=== PATIENT | male | born 1980 | race Caucasian/White ===

== ENCOUNTER 2020-10-19 10:02 | Inpatient (IN) | payer MEDICAID ==
[~2020-10-19] VITALS: Ht 188 cm; Wt 111.8 kg
[2020-10-19] MEDS ORDERED: BUPR100SR PO (11:19)
[2020-10-19] MEDS ORDERED: ARIP10TA8 PO (11:19)
[2020-10-19 11:32] LABS: AMPHET/METH SCREEN,URINE NEGATIVE (NEGATIVE); BARBITURATE SCREEN, URINE NEGATIVE (NEGATIVE); BENZODIAZEPINES SCREEN,URINE NEGATIVE (NEGATIVE); CANNABINOID SCREEN,URINE POSITIVE (NEGATIVE); COCAINE SCREEN,URINE NEGATIVE (NEGATIVE); METHADONE SCREEN, URINE NEGATIVE (NEGATIVE); OPIATE SCREEN,URINE NEGATIVE (NEGATIVE)
[2020-10-19 11:33] LABS: PHENCYCLIDINE SCREEN,URINE NEGATIVE (NEGATIVE)
[2020-10-19 11:36] LABS: BASOPHILS % (AUTO) 0.6 % (0.0-2.0); EOSINOPHILS % (AUTO) 2.5 % (1.0-6.0); HEMATOCRIT 37.7 % (41-53); HEMOGLOBIN 12.5 g/dL (13.5-17.5); LYMPHOCYTES # (AUTO) 1.5 K/uL (1.0-4.8); LYMPHOCYTES % (AUTO) 30.8 % (22.0-44.0); MEAN CORPUSCULAR HGB CONC 33.1 G/dL (31.0-37.0); MEAN CORPUSCULAR VOLUME 94 fL (80-100); MONOCYTES # (AUTO) 0.5 K/uL (0.1-1.0); MONOCYTES % (AUTO) 10.7 % (2.0-9.0); NEUTROPHILS # (AUTO) 2.7 K/uL (1.8-7.7); NEUTROPHILS % (AUTO) 55.4 % (40.0-70.0); PLATELET COUNT (AUTO) 164 K/uL (150-450); RED BLOOD CELL COUNT(AUTO) 4.03 MIL/uL (4.50-5.90)
[2020-10-19 11:49] LABS: ANION GAP 5 mmol/L (8-16); CARBON DIOXIDE 31 mmol/L (22-29); CHLORIDE 103 mmol/L (98-107); GLOMERULAR FILTR. RATE CALC > 60 mL/min (>60); GLUCOSE,RANDOM 106 mg/dL (70-110); POTASSIUM 4.2 mmol/L (3.5-5.1); SODIUM SERUM 139 mmol/L (136-145); UREA NITROGEN, BLOOD 14 mg/dL (7-18)
[2020-10-19 12:04] LABS: ALANINE AMINOTRANSFERASE 78 U/L (12-78); ALBUMIN 3.1 g/dL (3.4-5.0); ALKALINE PHOSPHATASE 92 U/L (46-116); ASPARTATE AMINOTRANSFERASE 49 U/L (15-37); BILIRUBIN,TOTAL 0.3 mg/dL (0.1-1.0); TOTAL PROTEIN, SERUM 6.5 g/dL (6.4-8.2)
[2020-10-19] MEDS ORDERED: PERMETHRIN 5% 60 GM CREAM TP ONE (12:15)
[2020-10-19 13:08] LABS: COVID AG,FIA SOURCE NASOPHARYNGEAL
[2020-10-19] MEDS ORDERED: CloNIDine HCL 0.1 MG TABLET PO PRN (17:00)
[2020-10-19] MEDS ORDERED: DOCUSATE SODIUM 100 MG CAPSULE PO PRN (17:00)
[2020-10-19] MEDS ORDERED: LOPERAMIDE HCL 2 MG CAPSULE PO PRN (17:00)
[2020-10-19] MEDS ORDERED: PETROLATUM,WHITE 28 GM JELLY TP PRN (17:00)
[2020-10-19] MEDS ORDERED: GuaiFENesin/D-METHORPHAN [SUGAR-FREE] 200-20MG/10 ML SYRUP UDCUP PO PRN (17:00)
[2020-10-19] MEDS ORDERED: ALBUTEROL SULFATE HFA 90 MCG/PUFF 8 GM INHALER IH PRN (17:00)
[2020-10-19] MEDS ORDERED: MAG HYDROX/AL HYDROX/SIMETH ES 30 ML SUSPENSION UDCUP PO PRN (17:00)
[2020-10-19] MEDS ORDERED: IBUPROFEN 400 MG TABLET PO PRN (17:00)
[2020-10-19] MEDS ORDERED: NICOTINE 14 MG/24 HOUR PATCH TD PRN (17:00)
[2020-10-19] MEDS ORDERED: ONDANSETRON HCL 4 MG TABLET PO PRN (17:00)
[2020-10-19 18:00] VITALS: BP 137/64
[2020-10-20 06:29] VITALS: BP 122/65
[2020-10-20 08:11] VITALS: BP 100/68
[2020-10-20 08:11] LABS: CHOL/HDL RATIO 2.5 (4.2-7.3)
[2020-10-20] MEDS: LORazepam 2 MG TABLET PO PRN ×2 (09:23→15:46)
[2020-10-20] MEDS: BuPROPion HCL 100 MG SR TABLET PO SCH ×2 (10:52→16:55)
[2020-10-20] MEDS: NICOTINE POLACRILEX 2 MG LOZENGE PO PRN ×3 (15:47→22:30)
[2020-10-20] MEDS: ACETAMINOPHEN 325 MG TABLET PO PRN (15:47)
[2020-10-20 16:05] VITALS: BP 130/83
[2020-10-20] MEDS: FERROUS SULFATE 325 MG EC TABLET PO SCH (17:30)
[2020-10-20] MEDS: ZOLPIDEM TARTRATE 10 MG TABLET PO PRN (22:26)
[2020-10-21 05:33] VITALS: BP 123/91
[2020-10-21] MEDS: FERROUS SULFATE 325 MG EC TABLET PO SCH ×3 (06:37→16:32)
[2020-10-21] MEDS ORDERED: FERROUS SULFATE 325 MG EC TABLET PO SCH (07:00)
[2020-10-21 07:21] LABS: HEMOGLOBIN A1C 5.1 % (3.8-5.6)
[2020-10-21 07:31] LABS: CHOL/HDL RATIO 2.4 (4.2-7.3)
[2020-10-21 08:16] VITALS: BP 133/72
[2020-10-21] MEDS: ARIPiprazole 10 MG TABLET PO SCH (08:20)
[2020-10-21] MEDS: ASCORBIC ACID 500 MG TABLET PO SCH (08:20)
[2020-10-21] MEDS: BuPROPion HCL 100 MG SR TABLET PO SCH ×2 (08:20→16:32)
[2020-10-21] MEDS: MULTIVITAMINS WITH MINERALS, THERAPEUTIC TABLET PO SCH (08:21)
[2020-10-21] MEDS: NICOTINE POLACRILEX 2 MG LOZENGE PO PRN ×2 (08:33→16:34)
[2020-10-21] MEDS ORDERED: BuPROPion HCL 100 MG SR TABLET PO ONE (09:45)
[2020-10-21] MEDS: LORazepam 2 MG TABLET PO PRN ×2 (12:42→23:55)
[2020-10-21] MEDS: HALOPERIDOL 5 MG TABLET PO PRN (12:51)
[2020-10-21] MEDS: BACITRACIN 28 GM OINTMENT TP SCH ×2 (12:51→17:00)
[2020-10-21 16:13] VITALS: BP 111/60
[2020-10-21 17:03] VITALS: BP 139/96
[2020-10-21] MEDS: SELENIUM SULFIDE 1% 207 ML SHAMPOO TP PRN (17:18)
[2020-10-21] MEDS: ZINC OXIDE 16% PASTE 57 GM TUBE TP SCH (17:18)
[2020-10-21] MEDS: ZOLPIDEM TARTRATE 10 MG TABLET PO PRN (23:55)
[2020-10-22 00:21] VITALS: BP 130/87
[2020-10-22] MEDS: FERROUS SULFATE 325 MG EC TABLET PO SCH ×3 (06:11→15:48)
[2020-10-22] MEDS: LORazepam 2 MG TABLET PO PRN ×2 (06:11→14:38)
[2020-10-22] MEDS: NICOTINE POLACRILEX 2 MG LOZENGE PO PRN ×3 (06:12→16:53)
[2020-10-22 08:04] VITALS: BP 121/62
[2020-10-22] MEDS: ARIPiprazole 10 MG TABLET PO SCH (08:11)
[2020-10-22] MEDS: ASCORBIC ACID 500 MG TABLET PO SCH (08:11)
[2020-10-22] MEDS: MULTIVITAMINS WITH MINERALS, THERAPEUTIC TABLET PO SCH (08:11)
[2020-10-22] MEDS: BuPROPion HCL 100 MG SR TABLET PO SCH ×2 (08:12→15:48)
[2020-10-22] MEDS: ZINC OXIDE 16% PASTE 57 GM TUBE TP SCH ×2 (08:15→20:35)
[2020-10-22] MEDS ORDERED: ARIPiprazole 5 MG TABLET PO ONE (09:15)
[2020-10-22] MEDS: BACITRACIN 28 GM OINTMENT TP SCH ×2 (09:24→20:35)
[2020-10-22 09:54] VITALS: BP 107/68
[2020-10-22] MEDS: ACETAMINOPHEN 325 MG TABLET PO PRN (09:54)
[2020-10-22] MEDS: SELENIUM SULFIDE 1% 207 ML SHAMPOO TP PRN (14:22)
[2020-10-22] MEDS: HALOPERIDOL 5 MG TABLET PO PRN (14:47)
[2020-10-22 16:10] VITALS: BP 135/80
[2020-10-22] MEDS: ZOLPIDEM TARTRATE 10 MG TABLET PO PRN (20:36)
[2020-10-23 02:10] VITALS: BP 122/74
[2020-10-23] MEDS: HALOPERIDOL 5 MG TABLET PO PRN ×2 (02:15→15:50)
[2020-10-23] MEDS: LORazepam 2 MG TABLET PO PRN ×2 (02:15→15:50)
[2020-10-23] MEDS: NICOTINE POLACRILEX 2 MG LOZENGE PO PRN ×4 (02:25→16:50)
[2020-10-23] MEDS: FERROUS SULFATE 325 MG EC TABLET PO SCH ×3 (06:17→16:15)
[2020-10-23] MEDS: SELENIUM SULFIDE 1% 207 ML SHAMPOO TP PRN (06:34)
[2020-10-23 08:19] VITALS: BP 127/80
[2020-10-23] MEDS: MULTIVITAMINS WITH MINERALS, THERAPEUTIC TABLET PO SCH (08:40)
[2020-10-23] MEDS: BuPROPion HCL 100 MG SR TABLET PO SCH ×2 (08:40→16:15)
[2020-10-23] MEDS: ARIPiprazole 15 MG TABLET PO SCH (08:40)
[2020-10-23] MEDS: ASCORBIC ACID 500 MG TABLET PO SCH (08:41)
[2020-10-23] MEDS: BACITRACIN 28 GM OINTMENT TP SCH ×2 (08:41→16:35)
[2020-10-23] MEDS: ZINC OXIDE 16% PASTE 57 GM TUBE TP SCH ×2 (08:42→20:53)
[2020-10-23] MEDS: VITAMIN E 200 UNIT PO SCH (08:57)
[2020-10-23] MEDS: ACETAMINOPHEN 325 MG TABLET PO PRN (12:47)
[2020-10-23 16:19] VITALS: BP 128/80
[2020-10-24 03:05] VITALS: BP 140/82
[2020-10-24] MEDS: LORazepam 2 MG TABLET PO PRN (05:48)
[2020-10-24] MEDS: HALOPERIDOL 5 MG TABLET PO PRN (05:48)
[2020-10-24] MEDS: FERROUS SULFATE 325 MG EC TABLET PO SCH ×3 (06:57→16:55)
[2020-10-24] MEDS: ARIPiprazole 15 MG TABLET PO SCH (08:01)
[2020-10-24] MEDS: BuPROPion HCL 100 MG SR TABLET PO SCH ×2 (08:01→12:28)
[2020-10-24] MEDS: ASCORBIC ACID 500 MG TABLET PO SCH (08:01)
[2020-10-24] MEDS: VITAMIN E 200 UNIT PO SCH (08:01)
[2020-10-24] MEDS: MULTIVITAMINS WITH MINERALS, THERAPEUTIC TABLET PO SCH (08:01)
[2020-10-24] MEDS: ZINC OXIDE 16% PASTE 57 GM TUBE TP SCH ×2 (08:13→20:25)
[2020-10-24 08:14] VITALS: BP 129/79
[2020-10-24] MEDS: BACITRACIN 28 GM OINTMENT TP SCH ×2 (09:00→16:56)
[2020-10-24] MEDS: NICOTINE POLACRILEX 2 MG LOZENGE PO PRN ×2 (09:07→13:11)
[2020-10-24] MEDS: QUEtiapine FUMARATE 100 MG TABLET PO SCH ×2 (12:28→20:25)
[2020-10-24] MEDS ORDERED: QUEtiapine FUMARATE 100 MG TABLET PO SCH (21:00)
[2020-10-25] MEDS: SELENIUM SULFIDE 1% 207 ML SHAMPOO TP PRN ×2 (06:30→16:27)
[2020-10-25] MEDS: ACETAMINOPHEN 325 MG TABLET PO PRN (06:46)
[2020-10-25] MEDS: FERROUS SULFATE 325 MG EC TABLET PO SCH ×3 (06:46→16:26)
[2020-10-25] MEDS: NICOTINE POLACRILEX 2 MG LOZENGE PO PRN ×4 (06:53→20:43)
[2020-10-25 08:08] VITALS: BP 139/77
[2020-10-25] MEDS: BuPROPion HCL 100 MG SR TABLET PO SCH ×2 (08:37→12:26)
[2020-10-25] MEDS: VITAMIN E 200 UNIT PO SCH (08:37)
[2020-10-25] MEDS: ASCORBIC ACID 500 MG TABLET PO SCH (08:38)
[2020-10-25] MEDS: MULTIVITAMINS WITH MINERALS, THERAPEUTIC TABLET PO SCH (08:38)
[2020-10-25] MEDS: QUEtiapine FUMARATE 100 MG TABLET PO SCH ×2 (08:38→20:30)
[2020-10-25] MEDS: ZINC OXIDE 16% PASTE 57 GM TUBE TP SCH ×2 (08:38→20:30)
[2020-10-25] MEDS: BACITRACIN 28 GM OINTMENT TP SCH ×2 (08:39→16:26)
[2020-10-25 16:24] VITALS: BP 137/73
[2020-10-25] MEDS: LORazepam 2 MG TABLET PO PRN (16:26)
[2020-10-25] MEDS: ZOLPIDEM TARTRATE 10 MG TABLET PO PRN (20:43)
[2020-10-26 03:47] VITALS: BP 132/90
[2020-10-26] MEDS: NICOTINE POLACRILEX 2 MG LOZENGE PO PRN (04:42)
[2020-10-26] MEDS: FERROUS SULFATE 325 MG EC TABLET PO SCH ×3 (06:29→16:29)
[2020-10-26] MEDS: LORazepam 2 MG TABLET PO PRN ×3 (06:42→16:29)
[2020-10-26] MEDS: BuPROPion HCL 100 MG SR TABLET PO SCH ×2 (08:10→12:03)
[2020-10-26] MEDS: QUEtiapine FUMARATE 100 MG TABLET PO SCH ×2 (08:10→20:56)
[2020-10-26] MEDS: MULTIVITAMINS WITH MINERALS, THERAPEUTIC TABLET PO SCH (08:10)
[2020-10-26] MEDS: VITAMIN E 200 UNIT PO SCH (08:11)
[2020-10-26] MEDS: ASCORBIC ACID 500 MG TABLET PO SCH (08:11)
[2020-10-26] MEDS: ZINC OXIDE 16% PASTE 57 GM TUBE TP SCH ×2 (08:13→20:56)
[2020-10-26] MEDS: BACITRACIN 28 GM OINTMENT TP SCH ×2 (08:13→17:16)
[2020-10-26 08:23] VITALS: BP 110/61
[2020-10-26 14:52] LABS: COVID AG,FIA SOURCE NASAL SWAB
[2020-10-26 16:19] VITALS: BP 136/82
[2020-10-27 01:30] VITALS: BP 132/88
[2020-10-27] MEDS: NICOTINE POLACRILEX 2 MG LOZENGE PO PRN (04:45)
[2020-10-27] MEDS: SELENIUM SULFIDE 1% 207 ML SHAMPOO TP PRN ×2 (04:46→10:26)
[2020-10-27] MEDS: FERROUS SULFATE 325 MG EC TABLET PO SCH ×3 (06:21→16:12)
[2020-10-27] MEDS: ZINC OXIDE 16% PASTE 57 GM TUBE TP SCH ×2 (07:04→20:27)
[2020-10-27 08:05] VITALS: BP 128/68
[2020-10-27] MEDS: MULTIVITAMINS WITH MINERALS, THERAPEUTIC TABLET PO SCH (08:30)
[2020-10-27] MEDS: BuPROPion HCL 100 MG SR TABLET PO SCH ×2 (08:31→13:00)
[2020-10-27] MEDS: ASCORBIC ACID 500 MG TABLET PO SCH (08:32)
[2020-10-27] MEDS: VITAMIN E 200 UNIT PO SCH (08:32)
[2020-10-27] MEDS: QUEtiapine FUMARATE 100 MG TABLET PO SCH ×2 (08:35→09:48)
[2020-10-27] MEDS: BACITRACIN 28 GM OINTMENT TP SCH ×2 (08:35→16:12)
[2020-10-27] MEDS: LORazepam 2 MG TABLET PO PRN ×2 (13:50→14:52)
[2020-10-27] MEDS ORDERED: BuPROPion HCL 100 MG SR TABLET PO ONE (16:00)
[2020-10-27 16:05] VITALS: BP 142/81
[2020-10-27] MEDS: MAGNESIUM HYDROXIDE SUSPENSION 30 ML UDCUP PO PRN (17:07)
[2020-10-27] MEDS: HALOPERIDOL 5 MG TABLET PO PRN (17:07)
[2020-10-28] MEDS: ZOLPIDEM TARTRATE 10 MG TABLET PO PRN ×2 (01:24→20:52)
[2020-10-28 04:41] VITALS: BP 129/80
[2020-10-28] MEDS: SELENIUM SULFIDE 1% 207 ML SHAMPOO TP PRN (04:43)
[2020-10-28] MEDS: FERROUS SULFATE 325 MG EC TABLET PO SCH ×3 (06:15→16:18)
[2020-10-28] MEDS: NICOTINE POLACRILEX 2 MG LOZENGE PO PRN (06:15)
[2020-10-28] MEDS: LORazepam 2 MG TABLET PO PRN (06:29)
[2020-10-28 08:03] VITALS: BP 123/77
[2020-10-28] MEDS: ASCORBIC ACID 500 MG TABLET PO SCH (08:39)
[2020-10-28] MEDS: QUEtiapine FUMARATE 100 MG TABLET PO SCH ×2 (08:40→20:52)
[2020-10-28] MEDS: BuPROPion HCL 100 MG SR TABLET PO SCH ×2 (08:40→12:55)
[2020-10-28] MEDS: VITAMIN E 200 UNIT PO SCH (08:40)
[2020-10-28] MEDS: MULTIVITAMINS WITH MINERALS, THERAPEUTIC TABLET PO SCH (08:40)
[2020-10-28] MEDS: BACITRACIN 28 GM OINTMENT TP SCH ×2 (09:31→16:18)
[2020-10-28] MEDS: ZINC OXIDE 16% PASTE 57 GM TUBE TP SCH ×2 (09:32→20:52)
[2020-10-28] MEDS: MAGNESIUM HYDROXIDE SUSPENSION 30 ML UDCUP PO PRN (16:17)
[2020-10-28 17:22] VITALS: BP 122/72
[2020-10-29 01:35] VITALS: BP 124/68
[2020-10-29] MEDS ORDERED: BUPR100SR PO ×2 (04:30)
[2020-10-29] MEDS ORDERED: QUET100T PO (04:32)
[2020-10-29] MEDS: NICOTINE POLACRILEX 2 MG LOZENGE PO PRN (04:40)
[2020-10-29] MEDS: MAGNESIUM HYDROXIDE SUSPENSION 30 ML UDCUP PO PRN (05:30)
[2020-10-29] MEDS: FERROUS SULFATE 325 MG EC TABLET PO SCH (05:33)
[2020-10-29 08:04] VITALS: BP 128/79
[2020-10-29] MEDS: MULTIVITAMINS WITH MINERALS, THERAPEUTIC TABLET PO SCH (08:16)
[2020-10-29] MEDS: QUEtiapine FUMARATE 100 MG TABLET PO SCH (08:16)
[2020-10-29] MEDS: BuPROPion HCL 100 MG SR TABLET PO SCH (08:16)
[2020-10-29] MEDS: VITAMIN E 200 UNIT PO SCH (08:18)
[2020-10-29] MEDS: ASCORBIC ACID 500 MG TABLET PO SCH (08:18)
[2020-10-29] MEDS: BACITRACIN 28 GM OINTMENT TP SCH (08:20)
[2020-10-29] MEDS: ZINC OXIDE 16% PASTE 57 GM TUBE TP SCH (08:20)
== END 2020-10-29 10:30 | disposition home or self-care (01) | DRG 753 ==
LOC: EMS 10:04 → B2S 13:13 → B3A 10-21 12:20
DX: F31.4 Bipolar disorder, current episode depressed, severe, without psychotic features (principal); R45.851 Suicidal ideations; Z81.8 Family history of other mental and behavioral disorders; Z59.0 Homelessness; F12.10 Cannabis abuse, uncomplicated; E83.51 Hypocalcemia; F15.10 Other stimulant abuse, uncomplicated; D64.9 Anemia, unspecified; S51.811A Laceration without foreign body of right forearm, initial encounter; X83.8XXA Intentional self-harm by other specified means, initial encounter; Y93.89 Activity, other specified; Y92.89 Other specified places as the place of occurrence of the external cause; Y99.8 Other external cause status; L30.9 Dermatitis, unspecified; F64.0 Transsexualism; F41.9 Anxiety disorder, unspecified; Z79.899 Other long term (current) drug therapy
CPT/HCPCS: 83036; 87426; G0480

== ENCOUNTER 2020-11-01 04:34 | Emergency (ER) | payer MEDICARE, MEDICAID ==
[~2020-11-01] VITALS: Ht 188 cm; Wt 109.1 kg
[~2020-11-01 04:34] MED LIST: BUPR100SR PO; QUET100T PO
[2020-11-01 06:11] VITALS: BP 133/99
== END 2020-11-01 06:44 | disposition home or self-care (01) ==
LOC: EMS 04:37
DX: F31.9 Bipolar disorder, unspecified (principal); F17.210 Nicotine dependence, cigarettes, uncomplicated; F15.90 Other stimulant use, unspecified, uncomplicated; F12.90 Cannabis use, unspecified, uncomplicated
CPT/HCPCS: Z7502

== ENCOUNTER 2020-11-17 13:13 | Inpatient (IN) | payer MEDICARE, MEDICAID ==
[~2020-11-17] VITALS: Ht 188 cm; Wt 118.5 kg
[2020-11-17 14:39] LABS: COVID AG,FIA SOURCE NASOPHARYNGEAL
[2020-11-17] MEDS ORDERED: ZOLPIDEM TARTRATE 10 MG TABLET PO PRN (17:00)
[2020-11-17 18:23] VITALS: BP 123/88
[2020-11-17] MEDS: BuPROPion HCL 100 MG SR TABLET PO SCH (18:30)
[2020-11-17] MEDS ORDERED: LORazepam 2 MG/ML VIAL IM ONE (19:30)
[2020-11-17] MEDS ORDERED: HALOPERIDOL LACTATE 5 MG/ML VIAL IM ONE (19:30)
[2020-11-17] MEDS ORDERED: DiphenhydrAMINE HCL 50 MG/ML VIAL IM ONE (19:30)
[2020-11-18 00:57] VITALS: BP 132/82
[2020-11-18] MEDS ORDERED: MAG HYDROX/AL HYDROX/SIMETH ES 30 ML SUSPENSION UDCUP PO PRN (07:00)
[2020-11-18] MEDS ORDERED: DOCUSATE SODIUM 100 MG CAPSULE PO PRN (07:00)
[2020-11-18] MEDS ORDERED: LOPERAMIDE HCL 2 MG CAPSULE PO PRN (07:00)
[2020-11-18] MEDS ORDERED: PETROLATUM,WHITE 28 GM JELLY TP PRN (07:00)
[2020-11-18] MEDS ORDERED: IBUPROFEN 400 MG TABLET PO PRN (07:00)
[2020-11-18] MEDS ORDERED: CloNIDine HCL 0.1 MG TABLET PO PRN (07:00)
[2020-11-18] MEDS ORDERED: ACETAMINOPHEN 325 MG TABLET PO PRN (07:00)
[2020-11-18] MEDS ORDERED: NICOTINE 14 MG/24 HOUR PATCH TD PRN (07:00)
[2020-11-18] MEDS ORDERED: ONDANSETRON HCL 4 MG TABLET PO PRN (07:00)
[2020-11-18] MEDS ORDERED: MAGNESIUM HYDROXIDE SUSPENSION 30 ML UDCUP PO PRN (07:00)
[2020-11-18] MEDS ORDERED: GuaiFENesin/D-METHORPHAN [SUGAR-FREE] 200-20MG/10 ML SYRUP UDCUP PO PRN (07:00)
[2020-11-18] MEDS ORDERED: ALBUTEROL SULFATE HFA 90 MCG/PUFF 8 GM INHALER IH PRN (07:00)
[2020-11-18] MEDS: BuPROPion HCL 100 MG SR TABLET PO SCH (08:42)
[2020-11-18] MEDS: LORazepam 2 MG TABLET PO PRN ×2 (08:42→16:12)
[2020-11-18] MEDS: ARIPiprazole 10 MG TABLET PO SCH (08:42)
[2020-11-18 08:47] LABS: BASOPHILS % (AUTO) 0.7 % (0.0-2.0); EOSINOPHILS % (AUTO) 3.7 % (1.0-6.0); HEMATOCRIT 41.1 % (41-53); HEMOGLOBIN 13.7 g/dL (13.5-17.5); HEMOGLOBIN A1C 5.1 % (3.8-5.6); LYMPHOCYTES # (AUTO) 0.9 K/uL (1.0-4.8); LYMPHOCYTES % (AUTO) 28.8 % (22.0-44.0); MEAN CORPUSCULAR HEMOGLOBIN 31.2 pg (26.0-34.0); MEAN CORPUSCULAR HGB CONC 33.3 G/dL (31.0-37.0); MEAN CORPUSCULAR VOLUME 94 fL (80-100); MONOCYTES # (AUTO) 0.3 K/uL (0.1-1.0); MONOCYTES % (AUTO) 9.4 % (2.0-9.0); NEUTROPHILS # (AUTO) 1.9 K/uL (1.8-7.7); NEUTROPHILS % (AUTO) 57.4 % (40.0-70.0); PLATELET COUNT (AUTO) 170 K/uL (150-450); RED BLOOD CELL COUNT(AUTO) 4.37 MIL/uL (4.50-5.90); RED CELL DISTRIBUTION WIDTH 13.7 % (11.5-14.5)
[2020-11-18 09:07] LABS: ALANINE AMINOTRANSFERASE 95 U/L (12-78); ALBUMIN 3.7 g/dL (3.4-5.0); ALKALINE PHOSPHATASE 85 U/L (46-116); ANION GAP 6 mmol/L (8-16); ASPARTATE AMINOTRANSFERASE 59 U/L (15-37); BILIRUBIN,TOTAL 0.3 mg/dL (0.1-1.0); CALCIUM, TOTAL 8.6 mg/dL (8.8-10.5); CARBON DIOXIDE 32 mmol/L (22-29); CHLORIDE 102 mmol/L (98-107); CHOL/HDL RATIO 2.7 (4.2-7.3); CHOLESTEROL 144 mg/dL (131-200); CREATININE 0.82 mg/dL (0.60-1.30); FREE T4 (FREE THYROXINE) 0.82 ng/dL (0.76-1.46); GLOMERULAR FILTR. RATE CALC > 60 mL/min (>60); GLUCOSE,RANDOM 132 mg/dL (70-110); HDL CHOLESTEROL 54 mg/dL (40-60); LDL CHOL (CALC.) 83 mg/dL (0-130); POTASSIUM 3.7 mmol/L (3.5-5.1); SODIUM SERUM 140 mmol/L (136-145); THYROID STIMULATING HORMONE 0.97 uIU/mL (0.36-3.74); TOTAL PROTEIN, SERUM 7.6 g/dL (6.4-8.2); TRIGLYCERIDES 37 mg/dL (15-150); UREA NITROGEN, BLOOD 17 mg/dL (7-18)
[2020-11-18] MEDS: HALOPERIDOL 5 MG TABLET PO PRN (16:12)
[2020-11-18 16:27] VITALS: BP 145/85
[2020-11-18] MEDS ORDERED: BACITRACIN 28 GM OINTMENT TP PRN (18:45)
[2020-11-19] VITALS (10 sets, daily range): BP systolic 130–140; BP diastolic 68–83
[2020-11-19] MEDS: ARIPiprazole 10 MG TABLET PO SCH (08:44)
[2020-11-19] MEDS ORDERED: BuPROPion HCL 100 MG SR TABLET PO SCH (09:00)
[2020-11-19] MEDS: ChlordiazePOXIDE HCL 25 MG CAPSULE PO PRN ×4 (10:33→18:44)
[2020-11-19] MEDS ORDERED: SELENIUM SULFIDE 1% 207 ML SHAMPOO TP PRN (11:00)
[2020-11-19] MEDS: MAGNESIUM CITRATE 300 ML ORAL SOLUTION PO PRN (11:55)
[2020-11-19] MEDS: BuPROPion HCL 100 MG SR TABLET PO SCH (13:16)
[2020-11-19] MEDS: ARIPiprazole LAUROXIL ER SUSPENSION 882 MG/3.2 ML SYRINGE IM ONE ×2 (13:16→19:09)
[2020-11-19] MEDS: ARIPiprazole LAUROXIL,SUBMICR. ER SUSPENSION 675 MG/2.4 ML SYRINGE IM ONE ×2 (13:17→19:09)
[2020-11-19] MEDS: NICOTINE POLACRILEX 2 MG LOZENGE PO PRN ×2 (14:38→17:26)
[2020-11-19] MEDS ORDERED: ZINC OXIDE 40%/COD LIVER OIL 57 GM PASTE TP SCH (17:00)
[2020-11-19] MEDS: HALOPERIDOL 5 MG TABLET PO PRN (19:01)
[2020-11-20 00:18] VITALS: BP 116/66
[2020-11-20 00:19] VITALS: BP 116/66
[2020-11-20 00:21] VITALS: BP 138/79
[2020-11-20 04:20] VITALS: BP 153/69
[2020-11-20] MEDS: ChlordiazePOXIDE HCL 25 MG CAPSULE PO PRN ×2 (06:22→10:36)
[2020-11-20] MEDS: ChlordiazePOXIDE HCL 25 MG CAPSULE PO SCH ×4 (08:37→21:00)
[2020-11-20] MEDS: BuPROPion HCL 100 MG SR TABLET PO SCH ×2 (08:37→12:27)
[2020-11-20] MEDS: ARIPiprazole 10 MG TABLET PO SCH (08:37)
[2020-11-20] MEDS: MAGNESIUM CITRATE 300 ML ORAL SOLUTION PO PRN (11:24)
[2020-11-20] MEDS: NICOTINE POLACRILEX 2 MG LOZENGE PO PRN (11:25)
[2020-11-20 12:48] VITALS: BP 124/78
[2020-11-20] MEDS ORDERED: LORazepam 2 MG/ML VIAL ONE (13:52)
[2020-11-20] MEDS ORDERED: DiphenhydrAMINE HCL 50 MG/ML VIAL IM ONE (14:00)
[2020-11-20] MEDS ORDERED: LORazepam 2 MG/ML VIAL IM ONE (14:00)
[2020-11-20] MEDS ORDERED: HALOPERIDOL LACTATE 5 MG/ML VIAL IM ONE (14:00)
[2020-11-20] MEDS: HALOPERIDOL 5 MG TABLET PO PRN (17:17)
[2020-11-20 18:08] VITALS: BP 122/74
[2020-11-20] MEDS: ZINC OXIDE 16% PASTE 57 GM TUBE TP SCH (21:00)
[2020-11-21 00:35] VITALS: BP 127/81
[2020-11-21 00:41] VITALS: BP 136/84
[2020-11-21 00:49] VITALS: BP 127/81
[2020-11-21] MEDS: ChlordiazePOXIDE HCL 25 MG CAPSULE PO PRN ×2 (05:43→08:51)
[2020-11-21] MEDS: ARIPiprazole 10 MG TABLET PO SCH (08:08)
[2020-11-21] MEDS: ChlordiazePOXIDE HCL 25 MG CAPSULE PO SCH ×2 (08:08→13:00)
[2020-11-21] MEDS: BuPROPion HCL 100 MG SR TABLET PO SCH ×2 (08:08→13:00)
[2020-11-21 08:24] VITALS: BP 122/69
[2020-11-21] MEDS: ZINC OXIDE 16% PASTE 57 GM TUBE TP SCH (09:00)
[2020-11-21] MEDS: HALOPERIDOL 5 MG TABLET PO PRN (09:38)
[2020-11-21] MEDS ORDERED: BUPR100SR PO ×2 (10:24)
[2020-11-21] MEDS ORDERED: ARIP882S IM (10:24)
[2020-11-21] MEDS ORDERED: ARIP10TA8 PO (12:56)
[2020-11-22] MEDS ORDERED: ChlordiazePOXIDE HCL 10 MG CAPSULE PO PRN (07:00)
[2020-11-22] MEDS ORDERED: ChlordiazePOXIDE HCL 10 MG CAPSULE PO SCH (09:00)
[2020-11-23] MEDS ORDERED: ChlordiazePOXIDE HCL 10 MG CAPSULE PO PRN (07:00)
[2020-12-19] MEDS ORDERED: ARIPiprazole LAUROXIL ER SUSPENSION 882 MG/3.2 ML SYRINGE IM SCH (09:00)
== END 2020-11-21 13:30 | disposition home or self-care (01) | DRG 885 ==
LOC: B2S 17:59 → B3A 11-18 11:08
DX: F31.4 Bipolar disorder, current episode depressed, severe, without psychotic features (principal); R45.851 Suicidal ideations; R73.9 Hyperglycemia, unspecified; D72.819 Decreased white blood cell count, unspecified; F10.20 Alcohol dependence, uncomplicated; R74.01 Elevation of levels of liver transaminase levels; Z20.822 Contact with and (suspected) exposure to COVID-19; Z81.8 Family history of other mental and behavioral disorders; Z59.0 Homelessness; Z79.899 Other long term (current) drug therapy
CPT/HCPCS: 83036; 84439; 84443; 87081; 87426; A9575; J1200; J1630; J2060